=== PATIENT | female | born 1980 | race Caucasian/White ===

== ENCOUNTER 2017-09-29 07:52 | Inpatient (IN) | payer BC ==
[2017-09-29] VITALS (23 sets, daily range): BP systolic 118–163; BP diastolic 58–91
[~2017-09-29] VITALS: Ht 162.6 cm; Wt 99.1 kg
[2017-09-29 09:21] LABS: EOSINOPHIL (%) 0.8 % (0-5); EOSINOPHIL COUNT 0.1 K/uL (0-0.3); IMMATURE GRANULOCYTE (%) 1.1 % (0.0-0.7); IMMATURE GRANULOCYTE COUNT 0.2 K/uL; LYMPHOCYTE COUNT 1.9 K/uL (1.0-2.8); MCH 31.4 PG (29.0-34.0); MCHC 33.3 G/DL (30.0-36.0); MCV 94.3 FL (83-99); MONOCYTE (%) 7.2 % (3-12); NEUTROPHIL (%) 76.1 % (45-76); PLATELET COUNT 244 K/uL (156-360); RBC DIS.WIDTH-CV 13.4 % (11.8-14.6); RBC DIS.WIDTH-SD 46.2 % (39-53); RED BLOOD COUNT 4.24 M/uL (3.80-5.20); WHITE BLOOD COUNT 13.2 K/uL (4.1-10.2)
[2017-09-29 10:29] LABS: DRSB INTERNAL CONTROL PASS; PROBE CHECK PASS; SPECIMEN PROCESSING CONTROL PASS
[2017-09-30] VITALS (18 sets, daily range): BP systolic 102–131; BP diastolic 55–74
[2017-09-30] MEDS ORDERED: ENDOCET 5-3251 EACH PO (10:07)
[2017-09-30] MEDS ORDERED: IBUPROFEN800 MG PO (10:07)
[2017-09-30] MEDS ORDERED: BUPRENORPHINE HC8 MG SL (17:55)
[2017-10-01 02:35] VITALS: BP 119/65
[2017-10-01 08:49] LABS: EOSINOPHIL (%) 0.4 % (0-5); EOSINOPHIL COUNT 0.1 K/uL (0-0.3); HEMATOCRIT 28.9 % (36.0-46.0); IMMATURE GRANULOCYTE (%) 0.8 % (0.0-0.7); IMMATURE GRANULOCYTE COUNT 0.2 K/uL; INSTRUMENT ABS NEUTROPHIL CT 17.6 K/uL; LYMPHOCYTE COUNT 2.3 K/uL (1.0-2.8); MCH 31.6 PG (29.0-34.0); MCHC 32.9 G/DL (30.0-36.0); MONOCYTE (%) 6.5 % (3-12); MONOCYTE COUNT 1.4 K/uL (0-0.8); NEUTROPHIL (%) 81.7 % (45-76); NEUTROPHIL COUNT 17.6 K/uL (1.8-6.4); PLATELET COUNT 202 K/uL (156-360); RBC DIS.WIDTH-SD 49.1 % (39-53); RED BLOOD COUNT 3.01 M/uL (3.80-5.20); WHITE BLOOD COUNT 21.6 K/uL (4.1-10.2)
[2017-10-01 11:51] VITALS: BP 126/76
[2017-10-01 14:59] VITALS: BP 141/87
[2017-10-01 19:01] VITALS: BP 124/71
[2017-10-01 22:24] VITALS: BP 130/86
[2017-10-02 03:02] VITALS: BP 128/73
[2017-10-02 07:33] VITALS: BP 130/77
[2017-10-02] MEDS ORDERED: OXYCODONE-APAP1 EACH PO (10:42)
[2017-10-02] MEDS ORDERED: IBUPROFEN800 MG PO (10:42)
== END 2017-10-02 13:45 | disposition home or self-care (01) | DRG 765 ==
LOC: LDRP-OP 07:52 → 2WEST 07:53 → LDRP-OP 09:22 → 2WEST 09-30 09:30 → LDRP-OP 10-15 09:39
PROVIDERS: Nurse Practitioner; Obstetrics & Gynecology
DX: O76 Abnormality in fetal heart rate and rhythm complicating labor and delivery (principal); O62.1 Secondary uterine inertia; O33.9 Maternal care for disproportion, unspecified; O69.1XX0 Labor and delivery complicated by cord around neck, with compression, not applicable or unspecified; O75.2 Pyrexia during labor, not elsewhere classified; O77.0 Labor and delivery complicated by meconium in amniotic fluid; O48.0 Post-term pregnancy; O99.214 Obesity complicating childbirth; E66.9 Obesity, unspecified; Z68.28 Body mass index [BMI] 28.0-28.9, adult; Z15.89 Genetic susceptibility to other disease; Z3A.41 41 weeks gestation of pregnancy; Z37.0 Single live birth
CPT/HCPCS: 85025; 87653; 88307; C1755; G0378; J0595; J1100; J1580; J2274; J2400; J2405; J7040; J7120